=== PATIENT | female | born 2000 | race Caucasian/White ===

== ENCOUNTER 2020-11-20 15:11 | Emergency (ER) | payer MEDICAID ==
[~2020-11-20] VITALS: Ht 157.5 cm; Wt 75.0 kg
[2020-11-20 15:24] VITALS: BP 110/71
[2020-11-20] MEDS ORDERED: DiphenhydrAMINE HCL 50 MG CAPSULE PO ONE (16:30)
[2020-11-20] MEDS ORDERED: CEPHALEXIN MONOHYDRATE 500 MG CAPSULE PO ONE (16:30)
[2020-11-20] MEDS ORDERED: PredniSONE 20 MG TABLET PO ONE (16:30)
== END 2020-11-20 17:20 | disposition home or self-care (01) ==
LOC: EMS 15:18
DX: L30.9 Dermatitis, unspecified (principal); F41.9 Anxiety disorder, unspecified; F32.9 Major depressive disorder, single episode, unspecified; F12.90 Cannabis use, unspecified, uncomplicated
CPT/HCPCS: 99284; J7512